=== PATIENT | male | born 1980 | race Caucasian/White ===

== ENCOUNTER 2017-09-01 17:22 | Inpatient (IN) | payer BC ==
[2017-09-01] MEDS ORDERED: DUONEB 0.5-3 MG/3 ml Neb IH ONE ×2 (17:31→17:36)
[2017-09-01] MEDS ORDERED: Sodium Chloride 0.9% 1000 ML 1,000 ML IV STA ×2 (17:41→17:52)
[2017-09-01] MEDS ORDERED: TYLENOL EXTRA STRENGTH 500 MG PO ONE (17:41)
[2017-09-01] MEDS ORDERED: Sodium Chloride 0.9% 1000 ML 1,000 ML ONE ×2 (17:43→18:13)
[2017-09-01] MEDS ORDERED: TYLENOL EXTRA STRENGTH 500 MG ONE (17:43)
[2017-09-01 18:00] LABS: BASOPHIL % 0.3 % (0.0-0.4); Eosinophil % 2.2 % (0.00-5.0); Granulocytes % 71.8 % (36.0-66.0); Lymphocytes % 14.6 % (24.0-44.0); Mean Cell Volume 83.7 fl (78-100); Mean Corpuscular Hemoglobin 29.9 pg (26-32); Mean Platelet Volume 10.7 fl (6-9.5); Monocytes % 11.1 % (0.0-12.0); Platelet Count 158 K/mm3 (150-450); Red Blood Count 5.15 M/mm3 (4.1-5.6); Red Cell Distribution Width 13.3 % (11.5-14.0)
--- NOTE | 2017-09-01 18:04 | ERPHSYRPT ---
- History of Present Illness Time Seen by Provider: 09/01/17 17:46 Source: patient Exam Limitations: no limitations Patient Subjective Stated Complaint: states pt was seen in [facility] on and treated for pnuemonia with a shot of rocephin and given zithromax for home. states pt has had a fever today and increased sob with a cough. states flu screen was negative at the [facility]. Triage Nursing Assessment: pt pale, warm, dry. lung sounds diminished throughout. temp of 102.7. Physician History: This is a 37-year-old white male seen at [facility] yesterday diagnosed with pneumonia he arrives with complaint of increased shortness of breath and fever with cough Patient has not had any vomiting no diarrhea flu swab yesterday at [facility] was negative x-ray yesterday at [facility] positive for pneumonia. Past medical history includes bradycardia and pneumonia. Past surgical history includes cardiac catheterization cholecystectomy heart catheter 2 right hand ORIF. Patient states he took Tylenol one time yesterday when given it by [facility] he states he took Advil around 6:00. Patient states he was given Rocephin in the [facility] yesterday. He states he is also on Zithromax. Timing/Duration: yesterday, worse Severity: moderate Modifying Factors: Improves With: medication (patient received Rocephin yesterday is on Zithromax today) Associated Symptoms: shortness of breath, diaphoresis, cough, fever, malaise, No nausea, No vomiting, No abdominal pain, No heartburn, No chest pain, No headaches, No loss of appetite, No rash, No syncope, No seizure, No weakness Allergies/Adverse Reactions: morphine Allergy (Unknown, Verified 09/01/17 17:36) Home Medications: Albuterol 2.5 mg/3 ml Neb [Proventil 2.5 mg/3 ml Neb] 2.5 mg IH Q4HPRN PRN 09/01/15 [History] Azithromycin [Zithromax Tri-Johnnie 500 mg] 500 mg PO DAILY 09/01/17 [History] Ergocalciferol (Vitamin D2) [Vitamin D] 400 unit PO DAILY 09/01/17 [History] Hx Tetanus, Diphtheria Vaccination/Date Given: Yes (unknown) Hx Influenza Vaccination/Date Given: No Hx Pneumococcal Vaccination/Date Given: No Immunizations Up to Date: Yes - Review of Systems Constitutional: Fever Eyes: No Symptoms, No Discharge, No Eye Pain, No Eye Redness, No Itchy, No Photophobia, No Tearing, No Vision Changes, No Double Vision, No Foreign Body Sensation Ears, Nose, & Throat: No Ear Pain, No Ear Discharge, No Hearing Changes, No Tinnitus, No Nose Pain, No Nose Congestion, No Nose Discharge, No Sinus Drainage , No Epistaxis, No Mouth Pain, No Mouth Swelling, No Loose Teeth, No Throat Pain , No Throat Swelling, No Hoarse, No Painful Swallowing, No Snoring, No Stridor Respiratory: Cough, Dyspnea Cardiac: No Chest Pain, No Edema, No Syncope Abdominal/Gastrointestinal: No Symptoms, No Abdominal Pain, No Nausea, No Vomiting, No Diarrhea, No Constipation, No Hematemesis, No Hematochezia, No Melena, No Dysphagia, No Appetite Changes, No Other Genitourinary Symptoms: No Dysuria Musculoskeletal: No Back Pain, No Neck Pain Skin: No Rash Neurological: No Dizziness, No Focal Weakness, No Sensory Changes Psychological: No Symptoms Endocrine: No Symptoms All Other Systems: Reviewed and Negative - Past Medical History Pertinent Past Medical History: Yes Neurological History: No Pertinent History ENT History: No Pertinent History Cardiac History: Other Respiratory History: Pneumonia Endocrine Medical History: No Pertinent History Musculoskeletal History: No Pertinent History GI Medical History: No Pertinent History History: No Pertinent History Psycho-Social History: No Pertinent History Male Reproductive Disorders: No Pertinent History Other Medical History: bradycardic - Past Surgical History Past Surgical History: Yes Cardiac: Cardiac Catheterization Gastrointestinal: Cholecystectomy Musculoskeletal: Orthopedic Surgery Other Surgical History: tonsils, heart cath x2, right hand rebuilt - Social History Smoking Status: Never smoker Exposure to second hand smoke: No Drug Use: none Patient Lives Alone: No - Nursing Vital Signs Nursing Vital Signs: Initial Vital Signs Temperature 102.6 F 09/01/17 17:29 Pulse Rate 100 H 09/01/17 17:29 Respiratory Rate 26 H 09/01/17 17:29 Blood Pressure 143/93 09/01/17 17:29 O2 Sat by Pulse Oximetry 90 L 09/01/17 17:29 Pain Scale Pain Intensity 5 - Physical Exam General Appearance: moderate distress, other (well-developed well-nourished white male, alert oriented 3) Ears, Nose, Throat Exam: normal ENT inspection, TMs normal, pharynx normal, moist mucous membranes, No dry mucous membranes, No TM abnormal (R), No TM abnormal (L), No pharyngeal erythema, No tonsillar exudate Neck Exam: normal inspection, non-tender, supple, full range of motion Respiratory Exam: diminished breath sounds, No chest tenderness, No wheezing Cardiovascular Exam: tachycardia, capillary refill <2 sec Gastrointestinal/Abdomen Exam: soft, normal bowel sounds, No tenderness, No mass Back Exam: normal inspection, normal range of motion, No CVA tenderness, No vertebral tenderness Extremity Exam: normal inspection, normal range of motion, pelvis stable Neurologic Exam: alert, oriented x 3, cooperative, normal mood/affect, nml cerebellar function, nml station & gait, sensation nml, No motor deficits Skin Exam: normal color, warm, dry, No rash Lymphatic Exam: No adenopathy SpO2 Interpretation: normal (91%) SpO2: 91 Oxygen Delivery: Room Air - Course Nursing assessment & vital signs reviewed: Yes EKG Interpreted by Me: RATE (102 bpm), Sinus Tach, Other (EKG: Sinus tachycardia , 102 bpm,axis S1/QIII pattern no acute ST or T wave changes noted) - Radiology Exams Chest X-ray Interpretation: Interpreted by me, Other (right middle lobe pneumonia) Ordered Tests: Active Orders 24 hr Category Date Time Status Clinical Resource Nurse STAT Care 09/01/17 17:49 Active EKG-ER Only STAT Care 09/01/17 17:38 Active IV Insertion STAT Care 09/01/17 17:38 Active Oxygen-ED Only NASAL CANNULA 2 lpm Care 09/01/17 18:29 Active Pulse Oximetry (ED) STAT Care 09/01/17 17:49 Active CHEST 1 VIEW (PORTABLE) Stat Exams 09/01/17 17:50 Taken BLOOD CULTURE Stat Lab 09/01/17 17:57 Received CBC W DIFF Stat Lab 09/01/17 17:56 Completed CMP Stat Lab 09/01/17 17:56 Completed CULTURE, THROAT Stat Lab 09/01/17 17:57 Received CULTURE,URINE Stat Lab 09/01/17 17:49 Ordered Lactic Acid Stat Lab 09/01/17 17:40 Completed PROTIME WITH INR Stat Lab 09/01/17 17:56 Completed PTT Stat Lab 09/01/17 17:56 Completed STREP SCREEN-BETA A Stat Lab 09/01/17 17:57 Completed UA Stat Lab 09/01/17 17:49 Ordered Respiratory Nebulizer STAT RT 09/01/17 17:30 Completed Respiratory Nebulizer STAT RT 09/01/17 18:43 Completed Transfer Order Routine Transfer 09/01/17 Ordered Medication Summary Discontinued Medications Generic Name Dose Route Start Last Admin Trade Name Iggyq PRN Reason Stop Dose Admin Acetaminophen 1,000 mg 09/01/17 17:41 09/01/17 17:43 Tylenol Extra Strength 500 Mg PO 09/01/17 17:42 1,000 mg STAT ONE Administration Acetaminophen Confirm 09/01/17 17:43 Tylenol Extra Strength 500 Mg Administered 09/01/17 17:44 Dose 1,000 mg .ROUTE .STK-MED ONE Albuterol Sulfate 2.5 mg 09/01/17 18:43 09/01/17 19:05 Proventil 2.5 Mg/3 Ml Neb IH 09/01/17 18:44 2.5 mg STAT ONE Administration Albuterol Sulfate Confirm 09/01/17 19:03 Proventil 2.5 Mg/3 Ml Neb Administered 09/01/17 19:04 Dose 2.5 mg IH .STK-MED ONE Albuterol/Ipratropium Confirm 09/01/17 17:31 Duoneb 0.5-3 Mg/3 Ml Neb Administered 09/01/17 17:32 Dose 3 ml IH .STK-MED ONE Albuterol/Ipratropium 3 ml 09/01/17 17:36 09/01/17 17:37 Duoneb 0.5-3 Mg/3 Ml Neb IH 09/01/17 17:37 3 ml STAT ONE Administration Sodium Chloride 1,000 mls @ 999 mls/hr 09/01/17 17:41 09/01/17 17:43 Sodium Chloride 0.9% 1000 Ml IV 09/01/17 18:41 999 mls/hr .Q1H1M STA Administration Sodium Chloride Confirm 09/01/17 17:43 Sodium Chloride 0.9% 1000 Ml Administered 09/01/17 17:44 Dose 1,000 mls @ ud .ROUTE .STK-MED ONE Sodium Chloride 1,000 mls @ 999 mls/hr 09/01/17 17:52 09/01/17 18:42 Sodium Chloride 0.9% 1000 Ml IV 09/01/17 18:52 999 mls/hr .Q1H1M STA Administration Sodium Chloride Confirm 09/01/17 18:13 Sodium Chloride 0.9% 1000 Ml Administered 09/01/17 18:14 Dose 1,000 mls @ ud .ROUTE .STK-MED ONE Ceftriaxone Sodium/Dextrose 1 g in 50 mls @ 100 mls/hr 09/01/17 18:29 18:39 Rocephin 1 Gm-D5w 50 Ml Bag IV 09/01/17 18:58 100 mls/hr STAT STA Administration Sodium Chloride 1,000 mls @ 999 mls/hr 09/01/17 18:30 09/01/17 19:04 Sodium Chloride 0.9% 1000 Ml IV 09/01/17 22:30 Not Given .Q1H1M SUE Ceftriaxone Sodium/Dextrose Confirm 09/01/17 18:37 Rocephin 1 Gm-D5w 50 Ml Bag Administered 09/01/17 18:38 Dose 1 g in 50 mls @ ud IV .STK-MED ONE Methylprednisolone Sodium Succinate 125 mg 09/01/17 18:52 09/01/17 18:56 Solu-Medrol 125 Mg IV 09/01/17 18:53 125 mg STAT ONE Administration Methylprednisolone Sodium Succinate Confirm 09/01/17 18:55 Solu-Medrol 125 Mg Administered 09/01/17 18:56 Dose 125 mg .ROUTE .STK-MED ONE Lab/Rad Data: Laboratory Result Diagrams 09/01/17 17:56 09/01/17 17:56 Laboratory Results 09/01/17 09/01/17 09/01/17 Range/Units 17:57 17:57 17:56 WBC (4.0-10.5) K/mm3 RBC (4.1-5.6) M/mm3 Hgb (12.5-18.0) gm/dl Hct (42-50) % MCV (78-100) fl MCH (26-32) pg MCHC (32-36) g/dl RDW (11.5-14.0) % Plt Count (150-450) K/mm3 MPV (6-9.5) fl Gran % (36.0-66.0) % Lymphocytes % (24.0-44.0) % Monocytes % (0.0-12.0) % Eosinophils % (0.00-5.0) % Basophils % (0.0-0.4) % Basophils # (0-0.4) INR 1.29 (0.8-3.0) APTT 33.9 (24.1-36.1) SECONDS Sodium (136-145) mEq/L Potassium (3.5-5.1) mEq/L Chloride (98-107) mEq/L Carbon Dioxide (21-32) mEq/L Anion Gap (5-15) MEQ/L BUN (9-20) mg/dL Creatinine (0.55-1.30) mg/dl Estimated GFR ML/MIN Glucose (70-110) MG/DL Lactic Acid (0.4-2.0) Calcium (8.5-10.1) mg/dL Total Bilirubin (0.2-1.0) mg/dL AST (15-37) U/L ALT (12-78) U/L Alkaline Phosphatase (46-116) U/L Serum Total Protein (6.4-8.2) gm/dL Albumin (3.4-5.0) g/dL Influenza Type A Ag NEGATIVE (NEGATIVE) Influenza Type B Ag NEGATIVE (NEGATIVE) RSV (PCR) NEGATIVE (Negative) Streptococcus Screen NEGATIVE (Negative) 09/01/17 09/01/17 09/01/17 Range/Units 17:56 17:56 17:40 WBC 6.0 (4.0-10.5) K/mm3 RBC 5.15 (4.1-5.6) M/mm3 Hgb 15.4 (12.5-18.0) gm/dl Hct 43.1 (42-50) % MCV 83.7 (78-100) fl MCH 29.9 (26-32) pg MCHC 35.7 (32-36) g/dl RDW 13.3 (11.5-14.0) % Plt Count 158 (150-450) K/mm3 MPV 10.7 H (6-9.5) fl Gran % 71.8 H (36.0-66.0) % Lymphocytes % 14.6 L (24.0-44.0) % Monocytes % 11.1 (0.0-12.0) % Eosinophils % 2.2 (0.00-5.0) % Basophils % 0.3 (0.0-0.4) % Basophils # 0.02 (0-0.4) INR (0.8-3.0) APTT (24.1-36.1) SECONDS Sodium 136 (136-145) mEq/L Potassium 3.6 (3.5-5.1) mEq/L Chloride 102 (98-107) mEq/L Carbon Dioxide 21.4 (21-32) mEq/L Anion Gap 16.2 H (5-15) MEQ/L BUN 13 (9-20) mg/dL Creatinine 1.15 (0.55-1.30) mg/dl Estimated GFR > 60 ML/MIN Glucose 111 H (70-110) MG/DL Lactic Acid 0.7 (0.4-2.0) Calcium 8.6 (8.5-10.1) mg/dL Total Bilirubin 1.00 (0.2-1.0) mg/dL AST 46 H (15-37) U/L ALT 50 (12-78) U/L Alkaline Phosphatase 104 (46-116) U/L Serum Total Protein 7.5 (6.4-8.2) gm/dL Albumin 3.8 (3.4-5.0) g/dL Influenza Type A Ag (NEGATIVE) Influenza Type B Ag (NEGATIVE) RSV (PCR) (Negative) Streptococcus Screen (Negative) - Progress Progress: improved Progress Note: 09/01/17 18:02 This is a 37-year-old white male who was seen yesterday at [facility] diagnosed with pneumonia given a shot of Rocephin and placed on Zithromax. He states he is becoming increasingly short of breath he states he has been having a fever. He is not vomiting no diarrhea. On arrival patient has diminished breath sounds he is tachycardic. Patient's vitals did trigger sepsis screening. Patient's lactate is within normal limits blood pressure is stable he has good perfusion to all extremities. Oxygen saturation 90% Patient did have diminished breath sounds he is given a DuoNeb treatment on arrival Patient is receiving IV fluids blood cultures have been drawn and as as well as routine sepsis labs. Repeat chest x-ray has been ordered 09/01/17 18:54 Patient is rechecked patient with pulse ox 95% on 2 L. Heart rate has decreased to him 92 bpm. Patient does have a wheezes bilaterally on recheck. Patient with a chest x-ray which shows a right middle lobe pneumonia. Patient's lactate 0.7 CBC White blood cells 6.0 hemoglobin 14 hematocrit 43.1 platelets 158 strep screen is negative Repeat influenza is pending Patient has received 1 g of Rocephin, a 4 liter bolus of normal saline has been ordered for this patient. I have discussed the patient's case with Dr. Jordan who is staff occupational therapist She will admit patient to telemetry, Will continue Solu-Medrol 80 mg every 6, continue Rocephin, Zithromax, She requests that the normal saline be given 2 L in the emergency room, wait an hour and then 2 more liters on the floor, Then 125 an hour thereafter. - Departure Time of Disposition: 18:58 Departure Disposition: Observation Clinical Impression: Shortness of breath, Bronchospasm, Failure of outpatient treatment Pneumonia Qualifiers: Pneumonia type: due to unspecified organism Laterality: right Lung location: middle lobe of lung Qualified Code(s): J18.1 - Lobar pneumonia, unspecified organism Fever Qualifiers: Fever type: unspecified Qualified Code(s): R50.9 - Fever, unspecified Condition: Fair Critical Care Time: No Referrals: BESSIE GODOY NP [Primary Care Provider] -
[2017-09-01 18:09] LABS: INR 1.29 (0.8-3.0); PROTIME 14.4 SECONDS (8.83-12.87)
[2017-09-01 18:11] LABS: PTT 33.9 SECONDS (24.1-36.1)
[2017-09-01 18:16] LABS: ALBUMIN 3.8 g/dL (3.4-5.0); ALKALINE PHOSPHATASE 104 U/L (46-116); ANION GAP 16.2 MEQ/L (5-15); CHLORIDE 102 mEq/L (98-107); Carbon Dioxide 21.4 mEq/L (21-32); Glucose 111 MG/DL (70-110); Potassium 3.6 mEq/L (3.5-5.1); SGOT/AST 46 U/L (15-37); SGPT/ALT 50 U/L (12-78); SODIUM 136 mEq/L (136-145); Total Protein 7.5 gm/dL (6.4-8.2)
[2017-09-01 18:26] LABS: BLOOD UREA NITROGEN 13 mg/dL (9-20)
[2017-09-01] MEDS ORDERED: ROCEPHIN 1 Gm-D5w 50 ml Bag** 1 G/50 ML IVPB IV STA (18:29)
[2017-09-01] MEDS ORDERED: ROCEPHIN 1 Gm-D5w 50 ml Bag** 1 G/50 ML IVPB IV ONE (18:37)
[2017-09-01] MEDS ORDERED: PROVENTIL 2.5 MG/3 ML NEB IH ONE ×2 (18:43→19:03)
[2017-09-01] MEDS ORDERED: solu-MEDROL 125 MG IV ONE (18:52)
[2017-09-01] MEDS ORDERED: solu-MEDROL 125 MG ONE (18:55)
[2017-09-01] MEDS: Sodium Chloride 0.9% 1000 ML 1,000 ML IV SCH ×3 (19:04→23:50)
[2017-09-01] MEDS ORDERED: DUONEB 0.5-3 MG/3 ml Neb IH PRN (19:30)
[2017-09-01] MEDS ORDERED: TYLENOL 325 MG PO PRN (19:30)
--- NOTE | 2017-09-01 19:59 | XRAY ---
Indication: Short of breath and fever. Comparison: One day earlier. Portable chest demonstrates worsening right midlung infiltrate. Remaining heart and lungs unremarkable.
[2017-09-01] MEDS: solu-MEDROL 125 MG IV SCH (22:25)
[2017-09-02] MEDS: solu-MEDROL 125 MG IV SCH ×5 (00:48→23:09)
[2017-09-02] MEDS: Sodium Chloride 0.9% 1000 ML 1,000 ML IV SCH ×3 (00:50→19:55)
[2017-09-02 04:19] LABS: Bilirubin NEGATIVE (NEGATIVE); Blood NEGATIVE Ery/ul (0-5); COMPLETE URINE MICROSCOPIC? NO; Collection Type VOID; Glucose 1000 mg/dL (NEGATIVE); Leukocyte Esterase NEGATIVE (NEGATIVE)
[2017-09-02 06:05] LABS: Mean Cell Volume 84.9 fl (78-100); Mean Corpuscular Hemoglobin 29.9 pg (26-32); Mean Platelet Volume 10.6 fl (6-9.5); Platelet Count 165 K/mm3 (150-450); Red Blood Count 4.51 M/mm3 (4.1-5.6); White Blood Count 5.4 K/mm3 (4.0-10.5)
[2017-09-02 06:20] LABS: ALKALINE PHOSPHATASE 86 U/L (46-116); BLOOD UREA NITROGEN 13 mg/dL (9-20); CHLORIDE 107 mEq/L (98-107); Carbon Dioxide 22.3 mEq/L (21-32); Glucose 162 MG/DL (70-110); Potassium 3.9 mEq/L (3.5-5.1); SGOT/AST 38 U/L (15-37); SGPT/ALT 49 U/L (12-78); SODIUM 140 mEq/L (136-145); Total Protein 6.4 gm/dL (6.4-8.2)
[2017-09-02 07:15] LABS: BAND 5 % (0.0-2.0); Platelet Estimate NORMAL (NORMAL); Total Cells Counted 100; Toxic Granulation 1+
[2017-09-02] MEDS ORDERED: ROCEPHIN 1 Gm-D5w 50 ml Bag** 1 G/50 ML IVPB IV SCH (10:00)
[2017-09-02] MEDS ORDERED: Zithromax 500 MG/ 250 ML NaCl Premix 500 MG/250 ML IVPB IV SCH (10:00)
--- NOTE | 2017-09-02 13:01 | PCM.HP ---
History of Present Illness - Chief Complaint Chief Complaint: PNEUMONIA, FAILED OUTPATIENT History of Present Illness: is a 37 year old male previously healthy pt of Pedro Resendiz who came home from work 3d ago and started feeling generally ill with a fever. The next day he went to [facility], was found to have RML pneumonia, given IM rocephin and po zithromax and sent home. His notes that at that time he had to be taken to CXR in a wheelchair. He continued to worsen at home and came through the ER last night. He was given IV rocephin and zithromax; this morning he states there is no improvement. He is sore all over. His cough is worse with deep breathing so he has been trying to breathe shallowly. He has no appetite. Gets dizzy when up to the bathroom. He has a history of some elevated BP but is not on antihypertensives. His daughter had pneumonia a few weeks ago. The pt had a previous episode of pneumonia 2 years ago which required hospitalization. Pt was noted to have glucosuria (of 1000) and a blood sugar of 162. He thought he had an A1c checked in the office; I see a normal insulin level but no A1c so that is being checked today. - Review of Systems Constitutional: Fever, Fatigue, Weakness Respiratory: Cough, Short Of Breath Cardiac: No Chest Pain Abdominal/Gastrointestinal: Nausea Musculoskeletal: Arthralgias (generalized) Neurological: Dizziness Psychological: No Anxiety, No Depression, No Suicidal Ideations, No Homicidal Ideations All Other Systems: Reviewed and Negative Medications & Allergies Home Medications: Home Medication List Albuterol 2.5 mg/3 ml Neb [Proventil 2.5 mg/3 ml Neb] 2.5 mg IH Q4HPRN PRN 09/01/15 [History Confirmed 09/01/17] Ergocalciferol (Vitamin D2) [Vitamin D] 400 unit PO WEEKLY 09/01/17 [History Confirmed 09/01/17] Allergies/Adverse Reactions: Allergies Allergy/AdvReac Type Severity Reaction Status Date / Time morphine Allergy Unknown Verified 09/01/17 17:36 - Past Medical History Past Medical History: Yes Neurological History: No Pertinent History ENT History: No Pertinent History Cardiac History: Other Respiratory History: Pneumonia Endocrine Medical History: No Pertinent History Musculoskelatal History: No Pertinent History GI Medical History: No Pertinent History History: No Pertinent History Pyscho-Social History: No Pertinent History Male Reproductive Disorders: No Pertinent History Comment: bradycardic - Past Surgical History Past Surgical History: Yes Neuro Surgical History: No Pertinent History Cardiac History: Cardiac Catheterization Respiratory Surgery: No Pertinent History GI Surgical History: Cholecystectomy Musculskeletal Surgical Hx: Orthopedic Surgery Other Surgical History: tonsils, heart cath x2, right hand rebuilt - Social History Smoking Status: Never smoker Exposure to second hand smoke: No Alcohol: None Drug Use: none - Physical Exam Vital Signs: Vital Signs - 24 hr Temp Pulse Resp BP Pulse Ox 09/02/17 12:00 80 18 93 L 09/02/17 11:20 97.2 F 79 18 143/78 93 L 09/02/17 08:00 18 09/02/17 06:58 97.4 F 70 18 141/72 93 L 09/02/17 04:00 97.5 F 64 17 103/58 95 09/02/17 00:00 97.7 F 81 15 127/62 97 09/01/17 22:00 102 H 22 94 L 09/01/17 20:32 98.0 F 102 H 138/79 93 L 09/01/17 19:11 91 L 09/01/17 19:06 95 H 22 96 09/01/17 18:46 100.7 F 09/01/17 18:24 98 09/01/17 17:30 100 H 22 91 L 09/01/17 17:29 102.6 F 100 H 26 H 143/93 90 L Oxygen-Last 24 hours O2 Percentage 2 Liters = 28% O2 Percentage 2 Liters = 28% O2 Percentage 2 Liters = 28% O2 Percentage 2 Liters = 28% O2 Percentage 2 Liters = 28% General Appearance: mild distress (wakes to touch. stays in one position, lying on his side with eyes usually closed, throughout the interview), alert Neurologic Exam: oriented x 3, cooperative Eye Exam: eyes nml inspection Neck Exam: normal inspection Respiratory Exam: normal breath sounds, lungs clear, No crackles/rales, No rhonchi, No wheezing Cardiovascular Exam: regular rate/rhythm, normal heart sounds, No murmur Gastrointestinal/Abdomen Exam: soft, normal bowel sounds, No tenderness, No distention, No mass, No guarding, No rebound Extremity Exam: normal inspection, No pedal edema, No swelling Skin Exam: normal color, warm, dry, No rash Results - Labs Lab/Micro Results: Lab Results-Last 24 Hours 09/02/17 09/02/17 Range/Units 05:25 05:25 WBC 5.4 (4.0-10.5) K/mm3 RBC 4.51 (4.1-5.6) M/mm3 Hgb 13.5 (12.5-18.0) gm/dl Hct 38.3 L (42-50) % MCV 84.9 (78-100) fl MCH 29.9 (26-32) pg MCHC 35.2 (32-36) g/dl RDW 13.0 (11.5-14.0) % Plt Count 165 (150-450) K/mm3 MPV 10.6 H (6-9.5) fl Segmented Neutrophils 85 H (36.-66.) % Band Neutrophils 5 H (0.0-2.0) % Lymphocytes (Manual) 10 L (24-44) % Differential Comment NORMAL Toxic Granulation 1+ Platelet Estimate NORMAL (NORMAL) Sodium 140 (136-145) mEq/L Potassium 3.9 (3.5-5.1) mEq/L Chloride 107 (98-107) mEq/L Carbon Dioxide 22.3 (21-32) mEq/L Anion Gap 15.0 (5-15) MEQ/L BUN 13 (9-20) mg/dL Creatinine 1.04 (0.55-1.30) mg/dl Estimated GFR > 60 ML/MIN Glucose 162 H (70-110) MG/DL Calcium 8.2 L (8.5-10.1) mg/dL Total Bilirubin 0.60 (0.2-1.0) mg/dL AST 38 H (15-37) U/L ALT 49 (12-78) U/L Alkaline Phosphatase 86 (46-116) U/L Serum Total Protein 6.4 (6.4-8.2) gm/dL Albumin 3.0 L (3.4-5.0) g/dL - Other Procedures and Tests Respiratory Therapy 09/02/17 12:52 Incentive Spirometry Assessmen TID Assessment/Plan (1) Pneumonia Current Visit: Yes Status: Acute Qualifiers: Pneumonia type: due to unspecified organism Laterality: right Lung location: middle lobe of lung Qualified Code(s): J18.1 - Lobar pneumonia, unspecified organism Assessment & Plan: He has not improved after 2 doses of rocephin. Will change antibiotic to levaquin. Discussed with pt that the deep breathing and coughing are beneficial , if unpleasant. Adding IS, scheduled nebs (albuterol), and mucinex. I expect he will take at least a couple more days to improve enough to go home. Code(s): J18.9 - PNEUMONIA, UNSPECIFIED ORGANISM (2) Glucosuria Current Visit: Yes Status: Acute Assessment & Plan: Checking a1c. If normal, would consider referral to specialist for further evaluation. Code(s): R81 - GLYCOSURIA (3) Failure of outpatient treatment Current Visit: Yes Status: Acute Code(s): Z78.9 - OTHER SPECIFIED HEALTH STATUS
[2017-09-02] MEDS: Levofloxacin 500MG/100ML D5W 500 MG/100 ML BAG IV SCH (13:08)
[2017-09-02] MEDS: TORAdol 30 mg Injection IV PRN (13:09)
[2017-09-02] MEDS: Mucinex 600MG ER Tabs PO SCH ×2 (13:09→20:50)
[2017-09-02] MEDS: DUONEB 0.5-3 MG/3 ml Neb IH SCH ×3 (15:00→22:49)
[2017-09-03] MEDS: DUONEB 0.5-3 MG/3 ml Neb IH SCH ×6 (02:52→23:46)
[2017-09-03] MEDS: Sodium Chloride 0.9% 1000 ML 1,000 ML IV SCH ×3 (03:48→21:46)
[2017-09-03] MEDS: solu-MEDROL 125 MG IV SCH ×3 (05:59→17:46)
--- NOTE | 2017-09-03 08:35 | PCM.NOTE ---
Date and Time: 09/03/17 08 Subjective Assessment: He is feeling better this morning. Still not eating, no appetite. Afebrile last night. - Review of Systems Constitutional: No Fever Respiratory: Cough Abdominal/Gastrointestinal: Appetite Changes Objective Exam General Appearance: no apparent distress, alert Neurologic Exam: oriented x 3, cooperative Skin Exam: normal color, warm, dry Respiratory Exam: crackles/rales (RML), rhonchi (RML), wheezing (RML), other ( other lung mota are CTA) Cardiovascular Exam: regular rate/rhythm, normal heart sounds, No murmur Extremity Exam: No pedal edema, No swelling Back Exam: normal inspection OBJECTIVE DATA Vital Signs: Vital Signs - 24 hr Temp Pulse Resp BP Pulse Ox 09/03/17 07:19 98.2 F 97 H 18 126/59 91 L 09/03/17 06:00 97 H 18 93 L 09/03/17 04:00 98.0 F 100 H 20 123/65 95 09/03/17 02:55 100 H 20 95 09/03/17 00:00 98.2 F 105 H 20 101/53 95 09/02/17 22:52 117 H 20 94 L 09/02/17 20:00 98.5 F 100 H 20 125/62 92 L 09/02/17 19:23 100 H 20 97 09/02/17 16:00 98.4 F 112 H 18 117/58 91 L 09/02/17 15:00 108 H 18 92 L 09/02/17 12:00 80 18 93 L 09/02/17 11:20 97.2 F 79 18 143/78 93 L Oxygen-Last 24 hours O2 Percentage 2 Liters = 28% O2 Percentage 2 Liters = 28% Pain Assessment - Last Documented Pain Intensity 5 Pain Scale Used 0-10 Pain Scale Intake and Output: Intake & Output 08/31/17 09/01/17 09/02/17 09/03/17 11:59 11:59 11:59 11:59 Intake Total 2617 Output Total 1175 Balance 1442 Assessment/Plan (1) Pneumonia Current Visit: Yes Status: Acute Qualifiers: Pneumonia type: due to unspecified organism Laterality: right Lung location: middle lobe of lung Qualified Code(s): J18.1 - Lobar pneumonia, unspecified organism Assessment & Plan: Improving on IV levaquin. Still not eating well. Anticipate may go home tomorrow or the next day. Recheck labs in a.m. Code(s): J18.9 - PNEUMONIA, UNSPECIFIED ORGANISM (2) Glucosuria Current Visit: Yes Status: Acute Assessment & Plan: A1c < 5.0. Will refer outpatient to nephrology. Code(s): R81 - GLYCOSURIA (3) Failure of outpatient treatment Current Visit: Yes Status: Acute Code(s): Z78.9 - OTHER SPECIFIED HEALTH STATUS
[2017-09-03] MEDS: Levofloxacin 500MG/100ML D5W 500 MG/100 ML BAG IV SCH (08:44)
[2017-09-03] MEDS: Mucinex 600MG ER Tabs PO SCH ×2 (08:44→20:57)
[2017-09-03] MEDS: TORAdol 30 mg Injection IV PRN (08:44)
[2017-09-04] MEDS: solu-MEDROL 125 MG IV SCH ×3 (02:15→12:18)
[2017-09-04] MEDS: DUONEB 0.5-3 MG/3 ml Neb IH SCH ×2 (03:17→07:05)
[2017-09-04 05:32] LABS: Mean Cell Volume 85.9 fl (78-100); Mean Corpuscular Hemoglobin 29.5 pg (26-32); Platelet Count 210 K/mm3 (150-450); Red Blood Count 4.27 M/mm3 (4.1-5.6); Red Cell Distribution Width 13.2 % (11.5-14.0); White Blood Count 10.7 K/mm3 (4.0-10.5)
[2017-09-04] MEDS: Sodium Chloride 0.9% 1000 ML 1,000 ML IV SCH (05:45)
[2017-09-04 05:55] LABS: ANION GAP 13.2 MEQ/L (5-15); BLOOD UREA NITROGEN 14 mg/dL (9-20); CHLORIDE 106 mEq/L (98-107); Carbon Dioxide 23.9 mEq/L (21-32); Glucose 140 MG/DL (70-110); Potassium 3.8 mEq/L (3.5-5.1); SODIUM 139 mEq/L (136-145)
--- NOTE | 2017-09-04 08:42 | PCM.DS ---
Discharge Summary Date of Admission: 09/02/17 12:49 Admitting Physician: STELLA HAM Primary Care Provider: STELLA HAM Allergies Allergies morphine Allergy (Unknown, Verified 09/01/17 17:36) Hospital Summary - Hospital Course Hospital Course: Admitted through ER with pneumonia. Was not tolerating po well. Had been treated outpatient with rocephin and zithromax; had one more dose of IV rocephin here without imiprovement so was changed to IV levaquin. He was initially febrile but now afebrile. Was not eating yesterday. He is feeling much better, tolerating po. Cough is still present but better. Hasn't required any O2. - Vitals & Intake/Output Vital Signs: Vital Signs Temperature 97.8 F 09/04/17 07:02 Pulse Rate 86 09/04/17 07:02 Respiratory Rate 20 09/04/17 07:02 Blood Pressure 141/73 09/04/17 07:02 O2 Sat by Pulse Oximetry 90 L 09/04/17 07:02 Oxygen-Last Documented O2 Percentage 2 Liters = 28% Intake & Output: Intake & Output 09/01/17 09/02/17 09/03/17 09/04/17 11:59 11:59 11:59 11:59 Intake Total 2857 2907 Output Total 2002 775 Balance 882 2132 - Lab Result Diagrams: 09/04/17 05:15 09/04/17 05:15 Lab Results-Last 24 Hrs: Lab Results-Last 24 Hours 09/04/17 09/04/17 Range/Units 05:15 05:15 WBC 10.7 H (4.0-10.5) K/mm3 RBC 4.27 (4.1-5.6) M/mm3 Hgb 12.6 (12.5-18.0) gm/dl Hct 36.7 L (42-50) % MCV 85.9 (78-100) fl MCH 29.5 (26-32) pg MCHC 34.3 (32-36) g/dl RDW 13.2 (11.5-14.0) % Plt Count 210 (150-450) K/mm3 MPV 10.0 H (6-9.5) fl Sodium 139 (136-145) mEq/L Potassium 3.8 (3.5-5.1) mEq/L Chloride 106 (98-107) mEq/L Carbon Dioxide 23.9 (21-32) mEq/L Anion Gap 13.2 (5-15) MEQ/L BUN 14 (9-20) mg/dL Creatinine 0.88 (0.55-1.30) mg/dl Estimated GFR > 60 ML/MIN Glucose 140 H (70-110) MG/DL Calcium 8.4 L (8.5-10.1) mg/dL - Procedures and Test Procedures and Tests throughout Hospitalization: Therapy Orders & Screens 09/02/17 12:52 Incentive Spirometry Assessmen TID Comment: Diagnosis: PNEUMONIA, FAILED OUTPATIENT 09/02/17 19:23 Respiratory Nebulizer Q4H Comment: Diagnosis: PNEUMONIA, FAILED OUTPATIENT Discharge Exam General Appearance: no apparent distress, alert Neurologic Exam: oriented x 3, cooperative Skin Exam: normal color, warm, dry, No rash Respiratory Exam: normal breath sounds, lungs clear, No crackles/rales, No rhonchi, No wheezing Cardiovascular Exam: regular rate/rhythm, normal heart sounds, No murmur Gastrointestinal/Abdomen Exam: soft, normal bowel sounds, No tenderness, No distention Extremity Exam: No pedal edema, No swelling Back Exam: normal inspection Final Diagnosis/Problem List - Final Discharge Diagnosis/Problem (1) Pneumonia Current Visit: Yes Status: Acute Assessment & Plan: Much improved today and tolerating po. His pulse ox is in the low 90s on room air but I expect that to improve. Would have him d/c home on PO levaquin today ; off work until next Sunday. I would like him to f/u in office this Sunday, before he returns to work. (2) Glucosuria Current Visit: Yes Status: Acute Assessment & Plan: See nephrology outpatient. (3) Failure of outpatient treatment Current Visit: Yes Status: Acute - Discharge Disposition: Home, Self-Care Condition: Fair Prescriptions: New Prednisone 20 mg [Deltasone 20 mg] 20 mg PO DAILY #17 tablet Levofloxacin [Levaquin] 500 mg PO DAILY #10 tablet Guaifenesin 600 mg ER [Mucinex 600MG ER Tabs] 600 mg PO BID PRN #30 tablet PRN Reason: Cough Continue Albuterol 2.5 mg/3 ml Neb [Proventil 2.5 mg/3 ml Neb] 2.5 mg IH Q4HPRN PRN PRN Reason: Shortness Of Breath Ergocalciferol (Vitamin D2) [Vitamin D] 400 unit PO WEEKLY Follow up with: BESSIE GODOY NP [NON-STAFF PHY W/O PRIVILEGES] -
[2017-09-04] MEDS: Mucinex 600MG ER Tabs PO SCH (08:44)
[2017-09-04] MEDS: Levofloxacin 500MG/100ML D5W 500 MG/100 ML BAG IV SCH (08:44)
[2017-09-04 10:26] LABS: Total Cells Counted 100
[2017-09-04 10:27] LABS: ANISOCYTOSIS 1+; Platelet Estimate NORMAL (NORMAL); Poikilocytosis 1+
[2017-09-04 11:11] VITALS: BP 134/77; PULSE 101; O2SAT 91
== END 2017-09-04 14:30 | disposition home or self-care (01) | DRG 195 ==
LOC: ED 17:22 → MED SURG 19:17 → OBSVTOIN 09-02 12:49
PROVIDERS: ADMIT Family Medicine; ATTEND Family Medicine
DX: J18.1 Lobar pneumonia, unspecified organism (principal); R81 Glycosuria; Z78.9 Other specified health status
CPT/HCPCS: 36000; 36415; 71010; 80048; 80053; 81002; 83036; 83605; 85025; 85610; 85730; 87040; 87070; 87086; 87430; 87631; 93005; 93041; 94640; 94760; 96360; 96361; 96375; 99285; G0378; J0456; J0696; J1885; J1956; J2930; A9270-GY

== ENCOUNTER 2022-02-05 17:51 | Emergency (ER) | payer BC, OTHER ==
[2022-02-05 18:21] VITALS: BP 136/95; O2SAT 97
--- NOTE | 2022-02-05 18:49 | ERPHSYRPT ---
- History of Present Illness Source: patient, other () Exam Limitations: no limitations Patient Subjective Stated Complaint: "pain in right lower leg" Triage Nursing Assessment: C/o pain in right lower leg especially calf area. Had crush injury to right lower leg on 01/30, had surgery on 01/30 at [facility] by Dr Lundy. Had wound vac removed sunday. States had severe pain in calf and worse today. Ortho from [facility] told patient to go to [facility] to have le g checked for blood clots. Takes asa 81 mg bid. Denies any known new injuries. Physician History: 41 yo wm s/p R tib-fib fx on 01/31/24 repaired at [facility] w R calf edema and increasing pain. Pt saw ortho on 02/03/22, and extremity was rebandaged. He states that ortho is ok w some weight bearing, but that pain is increasing. believes that he has some drainage from his surgical wounds w temp to 100. Method of Injury: direct blow (Crush injury to R tib-fib) Occurred: other (01/30/22) Quality: aching Lower Extremities Pain: leg: right Modifying Factors: Improves With: movement Allergies/Adverse Reactions: morphine Allergy (Unknown, Verified 09/01/17 17:36) Home Medications: Albuterol 2.5 mg/3 ml Neb [Proventil 2.5 mg/3 ml Neb] 2.5 mg IH Q4HPRN PRN 09/01/15 [History] Ergocalciferol (Vitamin D2) [Vitamin D] 400 unit PO WEEKLY 09/01/17 [History] Hx Tetanus, Diphtheria Vaccination/Date Given: Yes Hx Influenza Vaccination/Date Given: No Hx Pneumococcal Vaccination/Date Given: No Immunizations Up to Date: Yes Travel Risk - International Travel Have you traveled outside of the country in past 3 weeks: No - Coronavirus Screening Are you exhibiting any of the following symptoms?: No Close contact with a COVID-19 positive Pt in past 14-21 Days: No - Vaccine Status Have you recieved a Covid-19 vaccination: Yes [employer]: [employer] - Vaccination Dates Date of 2cond Vaccination (if applicable): Jun 2021 - Review of Systems Constitutional: No Symptoms, Fever Eyes: No Symptoms Ears, Nose, & Throat: No Symptoms Respiratory: No Symptoms Cardiac: No Symptoms Abdominal/Gastrointestinal: No Symptoms Genitourinary Symptoms: No Symptoms Skin: No Symptoms Neurological: No Symptoms Psychological: No Symptoms Endocrine: No Symptoms Hematologic/Lymphatic: No Symptoms Immunological/Allergic: No Symptoms - Past Medical History Pertinent Past Medical History: Yes Neurological History: No Pertinent History ENT History: No Pertinent History Cardiac History: Other Respiratory History: Pneumonia Endocrine Medical History: No Pertinent History Musculoskeletal History: No Pertinent History GI Medical History: No Pertinent History History: No Pertinent History Psycho-Social History: No Pertinent History Male Reproductive Disorders: No Pertinent History Other Medical History: bradycardic - Past Surgical History Past Surgical History: Yes Neuro Surgical History: No Pertinent History Cardiac: Cardiac Catheterization Respiratory: No Pertinent History Gastrointestinal: Cholecystectomy Musculoskeletal: Orthopedic Surgery Other Surgical History: tonsils, heart cath x2, right hand rebuilt - Social History Smoking Status: Never smoker Exposure to second hand smoke: No Drug Use: none Patient Lives Alone: No Significant Family History: no pertinent family hx - Nursing Vital Signs Nursing Vital Signs: Initial Vital Signs Temperature 98.3 F 02/05/22 18:08 Pulse Rate 104 H 02/05/22 18:08 Respiratory Rate 18 02/05/22 18:08 Blood Pressure 136/95 02/05/22 18:08 O2 Sat by Pulse Oximetry 97 02/05/22 18:08 Pain Scale Pain Intensity 8 Mildly tachy - Physical Exam General Appearance: no apparent distress Eyes, Ears, Nose, Throat Exam: normal ENT inspection, TMs normal, pharynx normal, moist mucous membranes Neck Exam: normal inspection, non-tender, supple, full range of motion, No Brudzinski, No Kernig's, No meningismus Cardiovascular/Respiratory Exam: normal breath sounds, regular rate/rhythm, heart sounds normal Gastrointestinal/Abdominal Exam: non-tender, soft, no organomegaly Back Exam: normal inspection, normal range of motion, No CVA tenderness, No vertebral tenderness Hips Exam: bilateral: non-tender, normal inspection, normal range of motion Legs Exam: right leg: other (RLE/kaitlyn bandages removed/Edema of calf noted w TTP/surgical sites appear clean,dry, and intact/Good pedal pulse, distal sensation, and capillary return) Knees Exam: bilateral knee: non-tender, normal inspection, normal range of motion, no evidence of injury Ankle Exam: bilateral ankle: non-tender, normal inspection, normal range of motion, no evidence of injury Foot Exam: bilateral foot: non-tender, normal inspection, normal range of mot ion, no evidence of injury Neuro/Tendon Exam: normal sensation, normal motor functions, normal tendon functions, responds to pain, no evidence tendon injury, No motor deficit, No sensory deficit Mental Status Exam: alert, oriented x 3, cooperative Skin Exam: normal color SpO2 Interpretation: normal SpO2: 97 O2 Delivery: Room Air - Course Nursing assessment & vital signs reviewed: Yes - Radiology Ultrasound Exam Venous Upper Extremity Ultrasound: Other (Neg for DVT per tech) Ordered Tests: Active Orders 24 hr Category Date Time Status VENOUS UNILAT/LIMITED EXTREMIT [US] Stat Exams 02/05/22 19:43 Taken CBC W DIFF Stat Lab 02/05/22 19:07 Completed Lactic Acid Stat Lab 02/05/22 19:10 Completed Lab/Rad Data: Laboratory Result Diagrams 02/05/22 19:07 Laboratory Results 02/05/22 02/05/22 Range/Units 19:10 19:07 WBC 8.9 (4.0-10.5) K/mm3 RBC 3.82 L (4.1-5.6) M/mm3 Hgb 12.0 L (12.5-18.0) gm/dl Hct 34.5 L (42-50) % MCV 90.3 (78-100) fl MCH 31.4 (26-32) pg MCHC 34.8 (32-36) g/dl RDW 13.3 (11.5-14.0) % Plt Count 254 (150-450) K/mm3 MPV 9.7 (7.5-11.0) fl Gran % 65.1 (36.0-66.0) % Eos # (Auto) 0.51 H (0-0.5) Absolute Lymphs (auto) 1.84 (1.0-4.6) Absolute Monos (auto) 0.69 (0.0-1.3) Lymphocytes % 20.8 L (24.0-44.0) % Monocytes % 7.8 (0.0-12.0) % Eosinophils % 5.8 H (0.00-5.0) % Basophils % 0.5 (0.0-0.4) % Absolute Granulocytes 5.77 (1.4-6.9) Basophils # 0.04 (0-0.4) Lactic Acid 1.2 (0.4-2.0) - Progress Progress: improved Progress Note: 02/05/22 20:[address] Burleson(on-call [facility]) states that compartment syndrome would be rare and will follow up in AM w phone call. Dr. Romero took pt's name/BD/phone#. Pt refuses any pain meds during ER stay. He is afebrile w mild posterior calf TTP. Incision C/D/I w good pedal pulse, distal sensation, and capillary return. Pt instructed to go to [facility] if pain increases, edema increases, erythema appears, or if he develops a temperature greater than 100.5. Counseled pt/family regarding: lab results, diagnosis, need for follow-up, rad results - Departure Departure Disposition: Home Clinical Impression: Post-op pain Condition: Stable Critical Care Time: No Referrals: BESSIE GODOY NP [Primary Care Provider] - Follow up/PCP as directed Instructions: Postoperative Pain (DC) Additional Instructions: Go to [facility] if pain increases, swelling increases, redness develops, or if a temperature greater than 100.5 develops. If you are not called by Ortho tomorrow, please call them. Dr. Burleson was consulted at [facility] if asked.
[2022-02-05 19:10] LABS: Absolute Neutrophil Ct (ANC) 5.77 (1.4-6.9); Basophil (Absolute #) 0.04 (0-0.4); Eosinophil % 5.8 % (0.00-5.0); Eosinophil (Absolute #) 0.51 (0-0.5); Hematocrit 34.5 % (42-50); Lymphocyte (Absolute #) 1.84 (1.0-4.6); Lymphocytes % 20.8 % (24.0-44.0); Mean Cell Volume 90.3 fl (78-100); Mean Corpuscular Hemoglobin 31.4 pg (26-32); Mean Corpuscular Hgb Concent. 34.8 g/dl (32-36); Mean Platelet Volume 9.7 fl (7.5-11.0); Monocyte (Absolute #) 0.69 (0.0-1.3); Monocytes % 7.8 % (0.0-12.0); Neutrophil % 65.1 % (36.0-66.0); Platelet Count 254 K/mm3 (150-450); Red Blood Count 3.82 M/mm3 (4.1-5.6); Red Cell Distribution Width 13.3 % (11.5-14.0); White Blood Count 8.9 K/mm3 (4.0-10.5)
[2022-02-05 20:30] VITALS: PULSE 92
--- NOTE | 2022-02-06 08:36 | XRAY ---
Exam: Unilateral right lower extremity duplex Doppler venous ultrasound exam from 02/05/2022. Comparison: [None.] Indication: Postop on right calf; right calf edema. Findings: The examination of the right lower extremity was carried out in the usual manner imaging home furnishings sales representative sections of the common femoral vein through the popliteal vein. Normal color flow was seen throughout. Normal spontaneous and phasic flow was seen at all home furnishings sales representative sections. There was normal transducer compression and doppler signal augmentation at all levels. Normal color blood flow, Doppler signal augmentation, and compression of the greater saphenous vein within the proximal right thigh is seen. There is also normal compression of the saphenous vein within the proximal right calf at the area of concern. Normal color blood flow, Doppler signal, and Doppler augmentation are seen within the distal posterior tibial veins as well. Impression: 1. No evidence of deep venous thrombosis within the right lower extremity. Nor do I see any evidence of superficial venous thrombosis.
== END 2022-02-05 20:39 | disposition home or self-care (01) ==
LOC: ED 17:51
DX: G89.18 Other acute postprocedural pain (principal); M79.661 Pain in right lower leg; R60.0 Localized edema; Z79.899 Other long term (current) drug therapy
CPT/HCPCS: 36415; 83605; 85025; 93971; 99283

== ENCOUNTER 2024-10-26 14:05 | Emergency (ER) | payer BC ==
[2024-10-26] MEDS ORDERED: solu-MEDROL ONE (14:28)
[2024-10-26] MEDS ORDERED: Sterile H2O 10 ml IJ ONE (14:28)
[2024-10-26] MEDS ORDERED: Sodium Chloride 0.9% 1000 ML 1,000 ML ONE (14:28)
[2024-10-26 14:29] VITALS: TEMP 99.7
[2024-10-26] MEDS: solu-MEDROL 125 MG, Sterile H2O 10 ml 2 ML IV ONE (14:29)
[2024-10-26] MEDS: Sodium Chloride 0.9% 1000 ML 1,000 ML IV STA (14:30)
--- NOTE | 2024-10-26 14:55 | ERPHSYRPT ---
- History of Present Illness Time Seen by Provider: 10/26/24 14:51 Source: patient, family Exam Limitations: no limitations Patient Subjective Stated Complaint: scattered hives Triage Nursing Assessment: Pt brought to the ER by his mother, hypertensive, denies pain, pulses normal, skin n/w/d, hives under his arm pits, on top of feet, on wrist, lips swollen, throat getting sore, no difficulty breathing, denies tongue swelling, doesn't appear to be in any distress Physician History: Patient is 44-year-old male with significant past medical history of right lower leg injury and afterwards patient has couple spot of hanson he was in his usual state of health recently he has developed some fungal infection on his leg and he was given Diflucan and Lotrisone cream today he started having swelling of the lip and rash all over the body which is itching. He is also complaining of some wheezing but otherwise denies any fever chills nausea vomiting or shortness of breath. Patient denies any urinary trouble. Patient also denies blood in the stool or urine. Patient never have this type of symptoms before. Patient was given Diflucan which she finished to 3 days ago. Timing/Duration: today Severity: moderate Associated Symptoms: denies symptoms Allergies/Adverse Reactions: morphine Adverse Reaction (Unknown, Verified 10/26/24 14:29) Nausea Hx Tetanus, Diphtheria Vaccination/Date Given: Yes Hx Influenza Vaccination/Date Given: No Hx Pneumococcal Vaccination/Date Given: No Travel Risk - International Travel Have you traveled outside of the country in past 3 weeks: No - Emerging Infectious Disease Are you exhibiting symptoms associated with any current EIDs: No - Review of Systems Constitutional: No Fever, No Chills Eyes: No Symptoms Ears, Nose, & Throat: No Symptoms Respiratory: No Cough, No Dyspnea Cardiac: No Chest Pain, No Edema, No Syncope Abdominal/Gastrointestinal: No Abdominal Pain, No Nausea, No Vomiting, No Diarrhea Genitourinary Symptoms: No Dysuria Musculoskeletal: No Back Pain, No Neck Pain Skin: Rash Neurological: No Dizziness, No Focal Weakness, No Sensory Changes Psychological: No Symptoms Endocrine: No Symptoms Immunological/Allergic: Other (lip swelling) All Other Systems: Reviewed and Negative - Past Medical History Pertinent Past Medical History: Yes Neurological History: Other ENT History: No Pertinent History Cardiac History: No Pertinent History Respiratory History: No Pertinent History Endocrine Medical History: No Pertinent History Musculoskeletal History: Fractures GI Medical History: No Pertinent History History: No Pertinent History Psycho-Social History: No Pertinent History Male Reproductive Disorders: No Pertinent History Other Medical History: ULNAR NERVE DECOMPRESSION R WRIST. GALBLADDER AND TONSILS REMOVED. - Past Surgical History Past Surgical History: Yes Neuro Surgical History: No Pertinent History Cardiac: Cardiac Catheterization Respiratory: No Pertinent History Gastrointestinal: Cholecystectomy Musculoskeletal: Orthopedic Surgery Other Surgical History: tonsils, heart cath x2, right hand rebuilt right lower leg surgery with chantal/screws/plates Significant Family History: no pertinent family hx - Social History Smoking Status: Never smoker Exposure to second hand smoke: No Drug Use: none Patient Lives Alone: No - Social Determinants of Health Will the patient participate in the screening: Yes Do you worry about a steady place to live?: No Do you have any problems with any of the following?: No known problems In the past 12 months,have you had to go without utilities?: No Transportation Issues: No Has anyone in your support network made you feel unsafe?: No Have you or anyone in your house had to go without enough: No - Nursing Vital Signs Nursing Vital Signs: Initial Vital Signs Temperature 99.7 F 10/26/24 14:21 Pulse Rate 79 10/26/24 14:21 Blood Pressure 152/97 10/26/24 14:21 O2 Sat by Pulse Oximetry 98 10/26/24 14:21 Pain Scale Pain Intensity 0 - Physical Exam General Appearance: no apparent distress, alert Eye Exam: PERRL/EOMI, eyes nml inspection Ears, Nose, Throat Exam: normal ENT inspection, TMs normal, pharynx normal, moist mucous membranes, other (lip swelling) Neck Exam: normal inspection, non-tender, supple, full range of motion Respiratory Exam: normal breath sounds, lungs clear, No respiratory distress Cardiovascular Exam: regular rate/rhythm, normal heart sounds, normal peripheral pulses Gastrointestinal/Abdomen Exam: soft, normal bowel sounds, No tenderness, No mass Back Exam: normal inspection, normal range of motion, No CVA tenderness, No vertebral tenderness Extremity Exam: normal inspection, normal range of motion, pelvis stable Neurologic Exam: alert, oriented x 3, cooperative, normal mood/affect, nml cerebellar function, nml station & gait, sensation nml, No motor deficits Skin Exam: normal color, warm, dry, No rash Lymphatic Exam: No adenopathy SpO2 Interpretation: normal SpO2: 96 O2 Delivery: Room Air - Course Nursing assessment & vital signs reviewed: Yes - Radiology Exams Chest X-ray Interpretation: Interpreted by me, Reviewed by me, Negative, No Pneumonia Ordered Tests: Active Orders 24 hr Category Date Time Status CHEST 2 VIEWS (PA AND LAT) Stat Exams 10/26/24 14:23 Taken BLOOD CULTURE Stat Lab 10/26/24 15:40 Received CBC W DIFF Stat Lab 10/26/24 15:25 Completed CMP Stat Lab 10/26/24 15:25 Completed Lactic Acid Stat Lab 10/26/24 14:35 Completed UA W/RFX UR CULTURE Stat Lab 10/26/24 14:22 Ordered Medication Summary Discontinued Medications Generic Name Dose Route Start Last Admin Trade Name Freq PRN Reason Stop Dose Admin Methylprednisolone Sodium 0 mg 10/26/24 14:22 10/26/24 14:29 Succinate 125 mg/ Sterile IV 10/26/24 14:23 125 mg Water 2 ml STAT ONE Administration Diphenhydramine HCl 50 mg 10/26/24 15:50 10/26/24 15:54 Diphenhydramine Hcl 50 Mg/Ml Vial IV 10/26/24 15:51 50 mg STAT ONE Administration Diphenhydramine HCl Confirm 10/26/24 15:52 Diphenhydramine Hcl 50 Mg/Ml Vial Administered 10/26/24 15:53 Dose 50 mg .ROUTE .STK-MED ONE Famotidine 40 mg 10/26/24 15:50 10/26/24 15:54 Famotidine 20 Mg/1 Vial IV 10/26/24 15:51 40 mg HS ONE Administration Famotidine Confirm 10/26/24 15:52 Famotidine 20 Mg/1 Vial Administered 10/26/24 15:53 Dose 40 mg IV .STK-MED ONE Sodium Chloride 1,000 mls @ 999 mls/hr 10/26/24 14:22 10/26/24 15:39 Sodium Chloride 0.9% 1000 Ml IV 10/26/24 15:22 Infused .Q1H1M STA Infusion Sodium Chloride Confirm 10/26/24 14:28 Sodium Chloride 0.9% 1000 Ml Administered 10/26/24 14:29 Dose 1,000 mls @ ud .ROUTE .STK-MED ONE Methylprednisolone Sodium Succinate Confirm 10/26/24 14:28 Methylprednis Sod Succ 125 Mg/2 Ml Vial Administered 10/26/24 14:29 Dose 125 mg .ROUTE .[employer] ONE Sterile Water Confirm 10/26/24 14:28 Water For Injection,Sterile 10 Ml Vial Administered 10/26/24 14:29 Dose 10 ml IJ .STK-MED ONE Lab/Rad Data: Laboratory Result Diagrams 10/26/24 15:25 10/26/24 15:25 Laboratory Results 10/26/24 10/26/24 10/26/24 Range/Units 15:25 15: 14:35 WBC 4.4 (4.23-9.07) x10^3/uL RBC 4.88 (4.63-6.08) x10^6/uL Hgb 15.1 (13.7-17.5) g/dL Hct 42.3 (40.1-51.0) % MCV 86.7 (79.0-92.2) fL MCH 30.9 (25.7-32.2) pg MCHC 35.7 (32.3-36.5) g/dL RDW 13.1 (11.6-14.4) % Plt Count 183 (163-337) x10^3/uL MPV 10.1 (9.4-12.4) fL Gran % 71.7 H (34.0-67.9) % Immature Gran % (Auto) 0.5 H (0.001-0.429) % Nucleat RBC Rel Count 0.0 (0.00-0.2) % Eos # (Auto) 0.12 (0.04-0.54) x10^3/uL Immature Gran # (Auto) 0.02 (0.001-0.031) x10^3u/L Absolute Lymphs (auto) 0.68 L (1.32-3.57) x10^3/uL Absolute Monos (auto) 0.40 (0.30-0.82) x10^3/uL Absolute Nucleated RBC 0.00 (0.00-0.012) x10^3u/L Lymphocytes % 15.4 L (21.8-53.1) % Monocytes % 9.0 (5.3-12.2) % Eosinophils % 2.7 (0.8-7.0) % Basophils % 0.7 (0.2-1.2) % Absolute Granulocytes 3.17 (1.78-5.38) x10^3/uL Basophils # 0.03 (0.01-0.08) x10^3/uL Sodium 136 (135-145) mmol/L Potassium 3.5 (3.5-5.1) mmol/L Chloride 105 (98-107) mmol/L Carbon Dioxide 23 (22-30) mmol/L Anion Gap 11.7 (5-15) MEQ/L BUN 11 (9-20) mg/dL Creatinine 1.20 (0.66-1.25) mg/dL Estimated GFR 77.4 ML/MIN Glucose 97 (74-106) mg/dL Lactic Acid 1.3 (0.4-2.0) Calcium 8.8 (8.4-10.2) mg/dL Total Bilirubin 1.30 (0.2-1.3) mg/dL AST 36 (17-59) U/L ALT 40 (0-50) U/L Alkaline Phosphatase 87 (38-126) U/L Serum Total Protein 7.1 (6.3-8.2) g/dL Albumin 4.5 (3.5-5.0) g/dL Influenza Type A Ag (NEGATIVE) Influenza Type B Ag (NEGATIVE) RSV (PCR) (NEGATIVE) SARS-CoV-2 (PCR) (NEGATIVE) Group A Strep Antibody (NEGATIVE) 10/26/24 10/26/24 Range/Units 14:35 14:35 WBC (4.23-9.07) x10^3/uL RBC (4.63-6.08) x10^6/uL Hgb (13.7-17.5) g/dL Hct (40.1-51.0) % MCV (79.0-92.2) fL MCH (25.7-32.2) pg MCHC (32.3-36.5) g/dL RDW (11.6-14.4) % Plt Count (163-337) x10^3/uL MPV (9.4-12.4) fL Gran % (34.0-67.9) % Immature Gran % (Auto) (0.001-0.429) % Nucleat RBC Rel Count (0.00-0.2) % Eos # (Auto) (0.04-0.54) x10^3/uL Immature Gran # (Auto) (0.001-0.031) x10^3u/L Absolute Lymphs (auto) (1.32-3.57) x10^3/uL Absolute Monos (auto) (0.30-0.82) x10^3/uL Absolute Nucleated RBC (0.00-0.012) x10^3u/L Lymphocytes % (21.8-53.1) % Monocytes % (5.3-12.2) % Eosinophils % (0.8-7.0) % Basophils % (0.2-1.2) % Absolute Granulocytes (1.78-5.38) x10^3/uL Basophils # (0.01-0.08) x10^3/uL Sodium (135-145) mmol/L Potassium (3.5-5.1) mmol/L Chloride (98-107) mmol/L Carbon Dioxide (22-30) mmol/L Anion Gap (5-15) MEQ/L BUN (9-20) mg/dL Creatinine (0.66-1.25) mg/dL Estimated GFR ML/MIN Glucose (74-106) mg/dL Lactic Acid (0.4-2.0) Calcium (8.4-10.2) mg/dL Total Bilirubin (0.2-1.3) mg/dL AST (17-59) U/L ALT (0-50) U/L Alkaline Phosphatase (38-126) U/L Serum Total Protein (6.3-8.2) g/dL Albumin (3.5-5.0) g/dL Influenza Type A Ag NEGATIVE (NEGATIVE) Influenza Type B Ag NEGATIVE (NEGATIVE) RSV (PCR) NEGATIVE (NEGATIVE) SARS-CoV-2 (PCR) NEGATIVE (NEGATIVE) Group A Strep Antibody NOT DETECTED (NEGATIVE) - Progress Progress: improved Counseled pt/family regarding: lab results, diagnosis, need for follow-up, rad results Medical Desision Making - Independent Historian Additional History obtained from: Mother - Diagnostic Testing Diagnostic test were ordered, analyzed, and reviewed by me: Yes Radiological Interpretation: Interpreted by me, Reviewed by me - Risk of complications Low Risk: Low risk of morbidity from additional dx testing or treatment - Departure Departure Disposition: Home Clinical Impression: Allergic urticaria Allergic angioedema Qualifiers: Encounter type: initial encounter Qualified Code(s): T78.3XXA - Angioneurotic edema, initial encounter Condition: Stable Critical Care Time: No Referrals: BESSIE GODOY NP [Primary Care Provider] - Follow up/PCP as directed Instructions: Adverse Drug Reactions, Adult (DC), Angioedema, Hives, Allergic reaction - ED discharge instructions Additional Instructions: Discharge/Care Plan REECE JARRELL was seen on 10/26/24 in the Emergency Room. The patient was counseled regarding Diagnosis,Lab results, Imaging studies, need for follow up and when to return to the Emergency Room. Prescriptions given: Discharge Note I have spoken with the patient and/or caregivers. I have explained the patient's condition, diagnosis and treatment plan based on the information available to me at this time. I have answered the patient's and/or caregiver's questions and addressed any concerns. The patient and/or caregivers have as good understanding of the patient's diagnosis, condition and treatment plan as can be expected at this point. The vital signs have been stable. The patient's condition is stable and appropriate for discharge from the emergency department. The patient will pursue further outpatient evaluation with the primary care physician or other designated or consulting physician as outlined in the discharge instructions. The patient and/or caregivers are agreeable to this plan of care and follow-up instructions have been explained in detail. The patient and/or caregivers have received these instruction. The patient/and or caregivers are aware that any significant change in condition or worsening of symptoms should prompt an immediate return to this or the closest emergency department or call 911. REECE JARRELL was seen on 10/26/24 n the Emergency Room. At that time you were treated for an emergent condition, during your visit Laboratory, Radiology and/or other procedures may have been ordered. It is very important that you follow-up with your Primary Care Physician BESSIE GODOY within the next 24-48 hours to review your Emergency Room visit and the final results of testing that was ordered. Some test results such as Urine Cultures, Blood Cultures, and other cultures if ordered will not be finalized for 24-48 hours. If you do not have a Primary Care Provider please call the medical records department at [phone] to obtain a copy of your results or you may sign into our patient portal to obtain these results by visiting us @ [email or web address] and completing the following steps: 1. Click on the Patient Portal link 2. Click the Patient Self Enrollment Link to complete the enrollment form and entering your 3. Once the enrollment form is completed you will receive an email with a temporary ID and password at the email address you provided. 4. Next choose a user name and password. Your user name must be at least 4 characters long and your password must be at least 4 characters long. 5. Choose a security question from the list and provide your answer to the question. If you already have signed into the Health Portal you may access your Health Care Information 23/04 by the following steps: 1. Login to our website @ [email or web address] 2. Enter your original user name and password. FAQS The [facility] Health Portal is an online tool that contains your Lab Results, Radiology Reports, Visit History, Discharge Instructions and Health Summary Lab and Radiology Results will not be available for 72 hours on the portal. The Portal is a secure site, passwords are encryted and URLs are re-written so they cannot be copied and pasted. You and authorized family members are the only ones who can access your Portal. Also there is a timeout feature that protects your information if you leave the Portal page open. If you have technical difficulty please use the Contact Us link on the page this will allow you to submit any questions you have regarding the Portal or you may contact the Medical Record Department at [phone] ext [phone]. Prescriptions: Methylprednisolone Packet [Medrol Dosepack] 4 mg PO UD #21 packet
[2024-10-26 15:26] LABS: INFLUENZA A NEGATIVE (NEGATIVE); INFLUENZA B NEGATIVE (NEGATIVE); RESPIRATORY SYNCTIAL VIRUS NEGATIVE (NEGATIVE); SARS-CoV-2 Xpert Express NEGATIVE (NEGATIVE)
[2024-10-26 15:45] LABS: Absolute Neutrophil Ct (ANC) 3.17 x10^3/uL (1.78-5.38); BASOPHIL % 0.7 % (0.2-1.2); Basophil (Absolute #) 0.03 x10^3/uL (0.01-0.08); Eosinophil % 2.7 % (0.8-7.0); Eosinophil (Absolute #) 0.12 x10^3/uL (0.04-0.54); Hematocrit 42.3 % (40.1-51.0); Hemoglobin 15.1 g/dL (13.7-17.5); IMMATURE GRAN # 0.02 x10^3u/L (0.001-0.031); IMMATURE GRAN % 0.5 % (0.001-0.429); Lymphocyte (Absolute #) 0.68 x10^3/uL (1.32-3.57); Lymphocytes % 15.4 % (21.8-53.1); Mean Cell Volume 86.7 fL (79.0-92.2); Mean Corpuscular Hemoglobin 30.9 pg (25.7-32.2); Mean Corpuscular Hgb Concent. 35.7 g/dL (32.3-36.5); Mean Platelet Volume 10.1 fL (9.4-12.4); Neutrophil % 71.7 % (34.0-67.9); Platelet Count 183 x10^3/uL (163-337); Red Blood Count 4.88 x10^6/uL (4.63-6.08); Red Cell Distribution Width 13.1 % (11.6-14.4); White Blood Count 4.4 x10^3/uL (4.23-9.07)
[2024-10-26] MEDS ORDERED: BENADRYL 50 MG/ML ONE (15:52)
[2024-10-26] MEDS ORDERED: Pepcid 20 MG VIAL IV ONE (15:52)
[2024-10-26] MEDS: BENADRYL 50 MG/ML IV ONE (15:54)
[2024-10-26] MEDS: Pepcid 20 MG VIAL IV ONE (15:54)
[2024-10-26 15:58] LABS: ALBUMIN 4.5 g/dL (3.5-5.0); ANION GAP 11.7 MEQ/L (5-15); BILIRUBIN,TOTAL 1.3 mg/dL (0.2-1.3); Calcium 8.8 mg/dL (8.4-10.2); Creatinine 1 1.2 mg/dL (0.66-1.25); EST GLOMERULAR FILTRATION RATE 77.4 ML/MIN; Potassium 3.5 mmol/L (3.5-5.1); Total Protein 7.1 g/dL (6.3-8.2)
[2024-10-26 16:35] VITALS: BP 137/96; PULSE 80; RESP 16; O2SAT 98
--- NOTE | 2024-10-26 18:32 | XRAY ---
Indication: Lip swelling and wheezing. Comparison: September 01, 2017 PA/lateral chest is now clear. Heart and mediastinal structures within normal limits. Bony thorax intact. Impression: Nonacute chest.
== END 2024-10-26 16:37 | disposition home or self-care (01) ==
LOC: ED 14:05
DX: T78.3XXA Angioneurotic edema, initial encounter (principal); Z79.52 Long term (current) use of systemic steroids
CPT/HCPCS: 0241U; 36415; 71046; 80053; 83605; 85025; 87040; 87651; 96374; 96375; 99284; J1200; J2919